=== PATIENT | female | born 1990 | race Two or more races ===

== ENCOUNTER 2019-10-24 16:26 | Emergency (ER) | payer OTHER ==
[~2019-10-24] VITALS: Ht 154.9 cm; Wt 63.5 kg
--- NOTE | 2019-10-24 16:40 | Emergency Room Report ---
History of Present Illness General Chief Complaint: General Complaint Source: Patient Present Illness HPI 29-year-old female with no symptom past medical history here complaining of a puncture wound with needlestick palm of right hand that started few hours prior to arrival. 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 A small puncture wound noted patient has full range of motion. Patient is neurovascularly intact. Does not know the HIV or hepatitis status of the patient that she was drawing blood from. Patient is up-to-date with tetanus shot. Denies . Denies any fever and chills. Allergies: Coded Allergies: No Known Allergies (Unverified , 10/24/19) COVID-19 Screening Contact w/high risk pt: No Experienced COVID-19 symptoms?: No COVID-19 Testing performed [employer]FINING: No - 10/15/2019 COVID-19 Screening: Negative COVID-19 COVID-19 Testing Source: NASO/ORAL Patient History Past Medical History: see triage record Past Surgical History: none Pertinent Family History: none Last Menstrual Period: 10/03/2019 Now: No Immunizations: UTD Reviewed Nursing Documentation: PMH: Agreed; PSxH: Agreed Nursing Documentation-PMH Past Medical History: No Stated History Review of Systems All Other Systems: negative except mentioned in HPI Physical Exam Vital Signs Date Time Temp Pulse Resp B/P (MAP) Pulse Ox O2 Delivery O2 Flow Rate FiO2 10/24/19 16:28 97.0 108 15 137/93 (108) 100 Room Air Sp02 EP Interpretation: reviewed, normal General Appearance: normal inspection, well appearing, no apparent distress, alert, GCS 15 Head: normocephalic, atraumatic Eyes: bilateral eye normal inspection, bilateral eye PERRL ENT: hearing grossly normal, normal pharynx, no angioedema, normal voice Neck: full range of motion, supple/symm/no masses Respiratory: chest non-tender, lungs clear, normal breath sounds, no rhonchi, speaking full sentences Cardiovascular #1: regular rate, rhythm, no edema, no murmur Gastrointestinal: normal bowel sounds, non tender, soft, non-distended, no guarding, no rebound Genitourinary: no CVA tenderness Musculoskeletal: back normal Neurologic: alert, motor strength/tone normal, oriented x3, sensory intact, responsive, speech normal Psychiatric: judgement/insight normal, memory normal, mood/affect normal, no suicidal/homicidal ideation Skin: other - puncture wound noninfected right palms Lymphatic: no adenopathy Medical Decision Making PA Attestation ALL Diagnosis and treatment plan reviewed and discussed with my supervising physician Dr. Peña Diagnostic Impression: Primary Impression: Puncture wound Additional Impression: Needlestick injury accident ER Course 29-year-old female with no symptom past medical history here complaining of a puncture wound with needlestick palm of right hand that started few hours prior to arrival. 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 A small puncture wound noted patient has full range of motion. Patient is neurovascularly intact. Does not know the HIV or hepatitis status of the patient that she was drawing blood from. Patient is up-to-date with tetanus shot. Denies . Denies any fever and chills. Ddx considered but are not limited to : Cellulitis, infected puncture wound, noninfected puncture wound, superficial infection, abscess Vital signs: are WNL, pt. is afebrile H&PE are most consistent with: Noninfected puncture wound right hand, needlestick injury ORDERS: Hand x-ray, rapid HIV, Hep B and C, Keflex ED INTERVENTIONS: None required at this time. DISCHARGE: At this time pt. is stable for d/c to home. Will provide printed patient care instructions, and any necessary prescriptions. Care plan and follow up instructions have been discussed with the patient prior to discharge. Patient take medication as directed, follow-up with primary care provider, if worsening symptoms return to emergency room Other X-Ray Diagnostic Results Other X-Ray Diagnostic Results : X-Ray ordered: Right hand # of Views/Limited Vs Complete: 3 View Indication: Pain EP Interpretation: Yes PA Xray: Interpretation reviewed, by supervising MD, and agrees with findings. Interpretation: no dislocation, no soft tissue swelling, no fractures, other - no FB Impression: No acute disease Electronically Signed by: Smita SEGAL Scribe Text TECHNIQUE: Frontal, lateral and oblique views of the right hand. COMPARISON: No relevant prior studies available. FINDINGS: Bones/joints: Unremarkable. No acute fracture. No dislocation. Soft tissues: Unremarkable. No radiopaque foreign body. IMPRESSION: No fracture or dislocation. Last Vital Signs Date Time Temp Pulse Resp B/P (MAP) Pulse Ox O2 Delivery O2 Flow Rate FiO2 10/24/19 16:28 97.0 108 15 137/93 (108) 100 Room Air Disposition: HOME, SELF-CARE Condition: Stable Scripts Cephalexin* (KEFLEX*) 500 Mg Capsule 500 MG ORAL EVERY 8 HOURS for 7 Days, #21 CAP 0 Refills Prov: Smita Chew 10/24/19 Patient Instructions: Needle Stick Injury, [id number], Puncture Wound, Easy- to-Read Additional Instructions: Take medication as directed, follow-up with your primary care provider, worsening symptoms return to the emergency room Smita Chew Oct 24, 2019 16:40
[2019-10-24] MEDS ORDERED: Bacitracin Oint UD TOPIC ONE (16:45)
[2019-10-24 16:58] VITALS: BP 137/93
[2019-10-24] MEDS ORDERED: CEPHALEXIN500 MG ORAL (17:47)
[2019-10-24 18:00] VITALS: BP 135/90
--- NOTE | 2019-10-24 18:14 | Diagnostic Imaging Report ---
EXAM: XR Right Hand Complete, 3 or More Views CLINICAL HISTORY: TRAUMA TECHNIQUE: Frontal, lateral and oblique views of the right hand. COMPARISON: No relevant prior studies available. FINDINGS: Bones/joints: Unremarkable. No acute fracture. No dislocation. Soft tissues: Unremarkable. No radiopaque foreign body. IMPRESSION: No fracture or dislocation.
== END 2019-10-24 18:00 | disposition home or self-care (01) ==
LOC: EMR 17:02
DX: S61.431A Puncture wound without foreign body of right hand, initial encounter (principal); W46.1XXA Contact with contaminated hypodermic needle, initial encounter; Y92.9 Unspecified place or not applicable; Y99.0 Civilian activity done for income or pay
CPT/HCPCS: 86703; 86706; 86803; 87536; 99283